=== PATIENT | male | born 1955 | race Caucasian/White ===

== ENCOUNTER 2020-10-19 12:35 | Emergency (ER) | payer BC ==
[~2020-10-19] VITALS: Ht 175.3 cm; Wt 95.3 kg
[2020-10-19 13:17] VITALS: BP 131/70
== END 2020-10-19 13:17 | disposition home or self-care (01) ==
LOC: M.ERS 12:35
DX: S61.211A Laceration without foreign body of left index finger without damage to nail, initial encounter (principal); W22.8XXA Striking against or struck by other objects, initial encounter; Y93.89 Activity, other specified; Y92.89 Other specified places as the place of occurrence of the external cause; Y99.8 Other external cause status